=== PATIENT | male | born 1985 | race Caucasian/White ===

== ENCOUNTER 2018-05-08 11:19 | Observation (INO) ==
[2018-05-08] MEDS ORDERED: *HR* Midazolam HCl 5 MG/ML VIAL IVP ONE (11:28)
[2018-05-08] MEDS ORDERED: *HR* Midazolam HCl 2 MG/2 ML VIAL ONE (11:28)
[2018-05-08] MEDS ORDERED: levETIRAcetam 1,000 MG in 0.9 % Sodium Chloride 100 ML IVPB ONE (11:35)
[2018-05-08] MEDS ORDERED: 0.9 % Sodium Chloride 1,000 ML IVC ONE (11:35)
[2018-05-08] MEDS ORDERED: *HR* LORazepam 2 MG/ML VIAL IVP ONE (11:38)
--- NOTE | 2018-05-08 11:42 | Emergency Department Note ---
Disposition Clinical Impression: Epileptic seizure Qualifiers: Epilepsy type: unspecified Intractability: not intractable Status epilepticus: without status epilepticus Qualified Code(s): G40.909 - Epilepsy, unspecified, not intractable, without status epilepticus Disposition: Admitted As Inpatient Condition: Fair Time of Disposition: 13:46 General Adult HPI - General Chief complaint: ED Seizure Stated complaint: seizure Time Seen by Provider: 05/08/18 11:27 Source: patient Mode of arrival: EMS Limitations: no limitations Nursing Notes Reviewed: Yes Vital Signs Reviewed: Yes - History of Present Illness HPI Narrative: Patient is a 33-year-old male with past medical history of seizure disorder presents to the emergency Department by squad for seizure. According to the EMS the patient was at work at [employer] and he fell to the ground due to a seizure. According to coworkers the patient slowly fell to the ground did not hit his head or his neck. They state that his arms and his legs both stiffened and his eyes rolled to the back of his head. States that this lasted for approximately 2 minutes until EMS arrived. According to EMS and route the patient appeared to have an additional episode of seizure-like activity is as they dropped the bursa to administer the patient intranasally the seizure activity stopped. On arrival to the ER the patient does appear to be in a postictal state. He did have an active seizure with duration of about 2 minutes on questioning. The patient's arms flexed and stiffened, his legs extended and stiffened and his eyes rolled to the back of his head. His heart rate also increased his pulse ox began to decrease. Discussed with the patient' s over the phone his Ativan allergy which she states is that he becomes agitated. He was administered 5 mg of Versed at that time. He also be started on a Keppra drip. - Related Data Home Medications Medication Instructions Recorded Confirmed carBAMazepine [Tegretol] 200 mg PO BID 08/20/15 05/08/18 Ibuprofen [Motrin] 800 mg PO BID 05/08/18 05/08/18 Allergies Allergy/AdvReac Type Severity Reaction Status Date / Time Penicillins Allergy Hives Verified 08/06/17 18:11 Sulfa (Sulfonamide Allergy See Verified 09/21/17 19:45 Antibiotics) Comments lorazepam [From Ativan] AdvReac See Verified 05/08/18 11:35 Comments Limitations: ROS unobtainable due to patients medical condition Past Medical History - Past Medical History Source: unable to obtain (AMS) Medical history: Reports: seizures Surgical history: Reports: no surgical history, other Psychiatric history: Reports: no psych history, other - Social History Smoking Status: Current some day smoker Smokeless Tobacco Status: No Alcohol use: Reports: none Drug use: Reports: none Physical Exam CONSTITUTIONAL: Initially upon arrival the patient's neurologic exam was intact , but sluggish due to post-ictal state. Vitals within normal limits. HEAD: Normocephalic; atraumatic. No john sign, raccoon eyes or evidence of CSF drainage EYES: PERRL, EOMI, no scleral icterus EARS: No hemotympanum or TM rupture, no otorrhea NECK: No tracheal deviation, JVD, or hematoma. Palpation of the posterior cervical spine reveals no tenderness NOSE: The nose is normal in appearance without rhinorrhea, epistaxis, or septal hematoma. MOUTH: Normal with intact dentition CHEST: no chest tenderness with palpation RESP: Normal chest excursion with respiration, no paradoxical motion, subcutaneous emphysema. The breath sounds are clear and equal bilaterally CARD: Regular rhythm, without murmurs, rub or gallop ABD: No distention, ecchymosis, abrasions. Non-tender, soft, without rigidity , rebound or guarding PELVIS: No laxity or tenderness with palpation or compression EXT: Good ROM without tenderness, deformity. Pulses 2+ in 4 extremities SKIN: Normal for age and race; warm and dry; no apparent lesions, not pale or diaphoretic NEUROLOGICAL: Patient is alert and oriented times three. Cranial nerves III- XII are intact. Sensory and motor functions are intact. Strength is 5/5 for flexion and extension in all 4 extremities. Patellar DTRS are equal and intact. Finger to nose testing is equal and normal bilaterally. Course Course Narrative: 11:43: Patient began actively seizing. The seizure lasted approximately 1 minute. 5 mg of Versed was drawn and administered via IV. The patient became alert. Appears postictal. He will be started with a Keppra loading dose. Discussed his Ativan allergy with his who states that it mostly causes him to become agitated. Discussed with patient's that plan at this time is to treat him for his recurring seizures. We will perform a workup to evaluate for any injury from his fall he did complain of left shoulder pain the fall was witnessed however patient is unable to state whether he has neck pains we will undergo a head CT and a C-spine of the neck. We will evaluate for any provoking etiology of his seizures with basic labs to rule out infectious cause. His does state that he was having URI-like symptoms over the past couple of days. - Reevaluation(s) Reevaluation #1: Patientor seizure-like activity. His CT scan of his other plain films came back unremarkable for acute intracranial process or fracture. Labwork is also returned unremarkable. I discussed the patient's case with the neurologist machine repair person Dr. Winkler and he agrees to see the patient and consult given that patient does not have follow-up at this time for outpatient neurology. I also discussed the patient's case with Dr. Morales and he agrees to accept the patient to the hospital. Vital Signs Temperature 96.9 F L 05/08/18 11:38 Pulse Rate 68 05/08/18 11:38 Respiratory Rate 18 05/08/18 11:38 Blood Pressure 113/61 05/08/18 11:38 O2 Sat by Pulse Oximetry 100 05/08/18 11:38 Temperature 97.6 F 05/08/18 14:50 Pulse Rate 56 05/08/18 14:50 Respiratory Rate 18 05/08/18 14:50 Blood Pressure 119/73 05/08/18 14:50 O2 Sat by Pulse Oximetry 99 05/08/18 14:50 Oxygen Delivery Oxygen Delivery Nasal Cannula Medical Decision Making - Medical Records Medical records reviewed: Yes I reviewed the patient's medical records. - Lab Data Lab results reviewed: Yes I reviewed the patient's lab results. Result diagrams: 05/08/18 11:43 05/08/18 11:43 Lab Results 05/08/18 05/08/18 05/08/18 Range/Units 11:43 11:43 11:43 WBC 7.5 (4.3-11.1) K/mcL RBC 4.70 (4.19-5.50) M/mcL Hgb 13.3 (12.9-16.9) g/dL Hct 38.9 (37.5-50.1) % MCV 82.8 L (83.0-100.0) fL MCH 28.3 (28.0-33.3) pg MCHC 34.2 (31.6-35.5) g/dL RDW 12.3 (11.5-14.5) % Plt Count 170 (140-400) K/mcL MPV 10.5 (9.4-12.4) fL Immature Gran % 0.3 (0-4) % Seg Neutrophils % 84.6 % Lymphocytes % 10.3 % Monocytes % 3.9 % Eosinophils % 0.4 % Basophils % 0.5 % Neutrophils # 6.4 (1.6-8.9) K/mcL Lymphocytes # 0.8 (0.6-4.6) K/mcL Monocytes # 0.3 (0.0-1.3) K/mcL Eosinophils # 0.0 (0.0-0.6) K/mcL Basophils # 0.0 (0.0-0.2) K/mcL Sodium 141 (136-145) mEq/L Potassium 3.7 (3.5-5.1) mEq/L Chloride 109 H (98-107) mEq/L Carbon Dioxide 26 (23-29) mEq/L BUN 7 (6-20) mg/dL Creatinine 1.00 (0.70-1.30) mg/dL Est GFR ( Amer) > 60 (> 60) Est GFR (Non-Af Amer) > 60 (> 60) BUN/Creatinine Ratio 7 (6-26) Glucose 114 H (70-105) mg/dL Calculated Osmolality 291 (280-300) Lactic Acid (0.5-2.2) mmol/L Calcium 9.2 (8.6-10.3) mg/dL Total Bilirubin 0.4 (0.3-1.0) mg/dL AST 15 (13-39) Units/L ALT 16 (7-52) Units/L Alkaline Phosphatase 84 (34-104) Units/L Creatine Kinase 53 (30-223) Units/L Serum Total Protein 6.9 (6.4-8.9) g/dL Albumin 4.4 (3.5-5.7) g/dL Globulin 2.5 (2.4-3.5) g/dL Albumin/Globulin Ratio 1.8 (1.1-2.2) Prolactin 10.78 (3.00-14.70) ng/mL Salicylates < 2.5 L (15.0-30.0) mg/dL Acetaminophen < 10 L (10-20) mcg/mL Carbamazepine < 1 L (4-12) mcg/mL Ethyl Alcohol < 10 (Less than 10) mg/dL 05/08/18 Range/Units 11:56 WBC (4.3-11.1) K/mcL RBC (4.19-5.50) M/mcL Hgb (12.9-16.9) g/dL Hct (37.5-50.1) % MCV (83.0-100.0) fL MCH (28.0-33.3) pg MCHC (31.6-35.5) g/dL RDW (11.5-14.5) % Plt Count (140-400) K/mcL MPV (9.4-12.4) fL Immature Gran % (0-4) % Seg Neutrophils % % Lymphocytes % % Monocytes % % Eosinophils % % Basophils % % Neutrophils # (1.6-8.9) K/mcL Lymphocytes # (0.6-4.6) K/mcL Monocytes # (0.0-1.3) K/mcL Eosinophils # (0.0-0.6) K/mcL Basophils # (0.0-0.2) K/mcL Sodium (136-145) mEq/L Potassium (3.5-5.1) mEq/L Chloride (98-107) mEq/L Carbon Dioxide (23-29) mEq/L BUN (6-20) mg/dL Creatinine (0.70-1.30) mg/dL Est GFR ( Amer) (> 60) Est GFR (Non-Af Amer) (> 60) BUN/Creatinine Ratio (6-26) Glucose (70-105) mg/dL Calculated Osmolality (280-300) Lactic Acid 1.6 (0.5-2.2) mmol/L Calcium (8.6-10.3) mg/dL Total Bilirubin (0.3-1.0) mg/dL AST (13-39) Units/L ALT (7-52) Units/L Alkaline Phosphatase (34-104) Units/L Creatine Kinase (30-223) Units/L Serum Total Protein (6.4-8.9) g/dL Albumin (3.5-5.7) g/dL Globulin (2.4-3.5) g/dL Albumin/Globulin Ratio (1.1-2.2) Prolactin (3.00-14.70) ng/mL Salicylates (15.0-30.0) mg/dL Acetaminophen (10-20) mcg/mL Carbamazepine (4-12) mcg/mL Ethyl Alcohol (Less than 10) mg/dL - Radiology Data Radiology results reviewed: Yes I reviewed the patient's radiology results. Cervical Spine CT 05/08/18 11:30 IMPRESSION: No acute abnormality of the cervical spine. D/ / Mercy Hollingsworth MD / Mercy Hollingsworth MD Interpreting Provider: Mercy Hollingsworth MD Head CT 05/08/18 11:30 IMPRESSION: No acute intracranial abnormality. Paranasal sinusitis. D/ / Mao Smith MD / Mao Smith MD Interpreting Provider: Mao Smith MD Shoulder X-Ray 05/08/18 11:30 IMPRESSION: 1. No acute osseous abnormality of the left shoulder. 2. No significant degenerative changes. D/ / 05/08/2018 13:03:14 Roya Shankar MD / [facility] Interpreting Provider: Roya Shankar MD Chest X-Ray 05/08/18 11:38 IMPRESSION: No acute cardiopulmonary disease. D/ / 05/08/2018 13:07:40 Roya Shankar MD / [facility] Interpreting Provider: Roya Shankar MD - EKG Data EKG #1 EKG attestation: Yes I reviewed and interpreted this EKG. EKG results narrative: EKG done at 11:40 shows sinus rhythm at a rate of 81 bpm. Normal axis. Intervals within normal limits no signs of ST elevation, ST depression or Q waves present.
--- NOTE | 2018-05-08 12:06 | Emergency Department Note ---
Disposition Clinical Impression: Epileptic seizure Qualifiers: Epilepsy type: unspecified Intractability: not intractable Status epilepticus: without status epilepticus Qualified Code(s): G40.909 - Epilepsy, unspecified, not intractable, without status epilepticus Disposition: Still a Patient Condition: Fair Referrals: Angelique Medina SH[employer]ER [Advanced Practice Nurse] - Forms: ED Satisfaction Letter General Adult HPI - General Chief complaint: ED Seizure Stated complaint: seizure Time Seen by Provider: 05/08/18 11:27 Source: patient Mode of arrival: EMS Limitations: no limitations - History of Present Illness Pain Scale: 4 - Related Data Home Medications Medication Instructions Recorded Confirmed carBAMazepine [Tegretol] 200 mg PO BID 08/20/15 09/15/15 Previous Rx's Medication Instructions Recorded Azithromycin [Zithromax Tri-Harman] 500 mg PO ONCE #2 tablet 01/19/17 Cephalexin [Keflex] 500 mg PO TID 3 Days capsule 08/06/17 Allergies Allergy/AdvReac Type Severity Reaction Status Date / Time Penicillins Allergy Hives Verified 08/06/17 18:11 Sulfa (Sulfonamide Allergy See Verified 09/21/17 19:45 Antibiotics) Comments lorazepam [From Ativan] AdvReac See Verified 05/08/18 11:35 Comments Past Medical History - Past Medical History Medical history: Reports: seizures Surgical history: Reports: no surgical history, other Psychiatric history: Reports: no psych history, other - Social History Smoking Status: Current some day smoker Smokeless Tobacco Status: No Alcohol use: Reports: none Drug use: Reports: none Physical Exam - General Limitations: no limitations General appearance: alert, in no apparent distress Course Vital Signs Temperature 96.9 F L 05/08/18 11:38 Pulse Rate 68 05/08/18 11:38 Respiratory Rate 05/08/18 11:38 Blood Pressure 113/61 05/08/18 11:38 O2 Sat by Pulse Oximetry 100 05/08/18 11:38 Temperature 96.9 F L 05/08/18 11:38 Pulse Rate 68 05/08/18 11:38 Respiratory Rate 18 05/08/18 11:38 Blood Pressure 113/61 05/08/18 11:38 O2 Sat by Pulse Oximetry 100 05/08/18 11:43 Oxygen Delivery Oxygen Delivery Nasal Cannula Attestation Statement - Attestation Attestation: I examined this patient and my medical decision-making was reviewed with the Resident Physician. I agree with the documented findings, disposition and treatment plan as described except to the extent set forth below. 33 year old male with history of epilepsey and is currently on tegertol and follows with [facility] neurolgoy experiecned a seizure while at work unwitnessed. Zeny states that he has been feeling ill thsi morning and had mild headache and sinus problems that he has been trying to recover from in the past few days. He was reently evaluted in the ED for his seizure last month and appeared to be dehydrated at that time. Zeny was found on the floor by his boss seizing and then had two more seizures in the squad and two wtinessed seizures t bedside all lastnight no more than 60 seconds each. He states that he did tae his tegretol at home this morning. There was concern that he was allergic to ativan and thus we gave hi versed therapy and a loading dose of keprra at bedside. After discussing wiht his , this is not a true allergy but rather an adverse reacion because he becomes agitated on ativan. I have discseed with minerva and his that if he experiences another seizure we will be treating him with ativan and he and his are agreeable to plan. he does not have an anaphylatic reaction to ativan, we have cahnged this in his recods. We will do neuro workup, placed him in a C-collar and doa focused trauma eval and then consult with neuro. WE johann andrew admit here or transfer to [facility]
[2018-05-08 12:10] LABS: Basophils % 0.5 %; Eosinophils % 0.4 %; Hematocrit 38.9 % (37.5-50.1); Hemoglobin 13.3 g/dL (12.9-16.9); Immature Granulocytes % 0.3 % (0-4); Lymphocytes # 0.8 K/mcL (0.6-4.6); Lymphocytes % 10.3 %; Mean Corpuscular HGB Conc 34.2 g/dL (31.6-35.5); Mean Corpuscular Hemoglobin 28.3 pg (28.0-33.3); Mean Corpuscular Volume 82.8 fL (83.0-100.0); Mean Platelet Volume 10.5 fL (9.4-12.4); Monocytes # 0.3 K/mcL (0.0-1.3); Monocytes % 3.9 %; Neutrophils # 6.4 K/mcL (1.6-8.9); Platelet Count 170 K/mcL (140-400); Red Cell Distribution Width 12.3 % (11.5-14.5); Segmented Neutrophils % 84.6 %
[2018-05-08 12:36] LABS: Acetaminophen < 10 mcg/mL (10-20); Alanine Aminotransferase 16 Units/L (7-52); Albumin 4.4 g/dL (3.5-5.7); Albumin/Globulin Ratio 1.8 (1.1-2.2); Alkaline Phosphatase 84 Units/L (34-104); Aspartate Amino Transferase 15 Units/L (13-39); BUN/Creatinine Ratio 7 (6-26); Bilirubin,Total 0.4 mg/dL (0.3-1.0); Blood Urea Nitrogen 7 mg/dL (6-20); Calcium 9.2 mg/dL (8.6-10.3); Carbon Dioxide 26 mEq/L (23-29); Chloride 109 mEq/L (98-107); Creatine Kinase 53 Units/L (30-223); Ethanol < 10 mg/dL (Less than 10); Globulin 2.5 g/dL (2.4-3.5); Glucose 114 mg/dL (70-105); Osmolality,Calculated 291 (280-300); Potassium 3.7 mEq/L (3.5-5.1); Salicylate < 2.5 mg/dL (15.0-30.0); Sodium 141 mEq/L (136-145); Total Protein 6.9 g/dL (6.4-8.9); eGFR For Non-African Americans > 60 (> 60)
[2018-05-08 13:00] LABS: Prolactin 10.78 ng/mL (3.00-14.70)
[2018-05-08] MEDS ORDERED: Naloxone 0.4 MG/ML INJ IVP PRN (14:58)
--- NOTE | 2018-05-08 15:19 | Internal Med History&Physical ---
<Violeta Wills - Last Filed: 05/08/18 15:11> Date of Encounter: 05/08/18 Time of Encounter: 15:11 Internal Medicine - H&P: HPI Chief complaint: Seizure at work Admitted From: Home (Work) Plans for Post Hospital Care: Home History of present illness: Mr. Cortez is a 33 year old male with history of epilepsy. The patient indicated that he started his day with a headache at the base of his neck. The patient went to work, and was found on the floor seizing. He was brought to the ED, by squad. The patient had a full work up in the ED and was noted to have a negative CT of head. He was evaluated for fractures of the left shoulder and the cervical spine, which was negative. The patient admitted that he occasionally forgets to take his tegretol and frequently forgets his bedtime dose. 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 I will add a pharmacy consult to help the patient try to manage dosing at night. He still reports a AVINA. Will add tylenol prn. Past Med Surg Social Fam HX - Past Medical History Medical history: seizures Additional medical history: unable to verify Psychiatric history: no psych history, other - Past Surgical History Surgical History: no surgical history, other Additional surgical history: Abdominal surgery. hernia repair - Social History Smoking Status: Current some day smoker Smokeless Tobacco Status: No Alcohol use: none Drug use: none Internal Medicine - H&P: Meds carBAMazepine [Tegretol] 200 mg PO BID 08/20/15 [History] Ibuprofen [Motrin] 800 mg PO BID 05/08/18 [History] 3 Allergy/AdvReac Type Severity Reaction Status Date / Time Penicillins Allergy Hives Verified 08/06/17 18:11 Sulfa (Sulfonamide Allergy See Verified 09/21/17 19:45 Antibiotics) Comments lorazepam [From Ativan] AdvReac See Verified 05/08/18 11:35 Comments All Systems PM: A 10-system review of systems was performed and is negative for pertinent findings except as documented above in the HPI. - Constitutional Constitutional: no chills, no fever(s), no night sweats - EENT Eyes: no change in vision, no discharge, no pain, no photophobia Ears: no ear discharge, no ear pain, no tinnitus Nose, mouth and throat: no dysphagia, no nasal discharge, no neck pain, no sore throat - Cardiovascular Cardiovascular ROS IM: no chest pain, no diaphoresis, no dyspnea, no lightheadedness, no palpitations, no syncope - Respiratory Respiratory: no cough, no dyspnea, no wheezing, no excessive phlegm production - Gastrointestinal Gastrointestinal: no abdominal pain, no diarrhea, no hematemesis, no hematochezia, no melena, no nausea, no vomiting - Musculoskeletal Musculoskeletal ROS IM: no numbness, no tingling - Integumentary Integumentary IM: no rash, no unusual bruising - Neurological Neurological ROS: no confusion, no convulsions, no focal weakness, no numbness, no tingling, no tremor(s) - Hematologic/Lymphatic Hematologic/Lymphatic: no easy bruising - Constitutional Vitals: Temp Pulse Resp BP Pulse Ox 97.6 F 56 18 119/73 99 05/08/18 14:50 05/08/18 14:50 05/08/18 14:50 05/08/18 14:50 05/08/18 14:50 - Head Head exam: Present: atraumatic, normocephalic - Eye Eye exam: Present: PERRL, conjuntiva pink, sclera anicteric Pupils: Present: PERRL - Neck Neck exam general surgery: Present: supple, trachea midline. Absent: lymphadenopathy - Respiratory Respiratory exam: Present: CTAB. Absent: accessory muscle use, rales, rhonchi, wheezes - Cardiovascular Cardiovascular exam: Present: RRR, +S1, +S2. Absent: diastolic murmur, gallop, rubs, systolic murmur - GI/Abdominal GI/Abdominal exam: Present: normal bowel sounds, soft, no peritoneal signs. Absent: distended, tenderness - Extremities Exam Extremities exam: Present: warm, radial pulses palpable and symmetrical. Absent : calf tenderness, cyanotic, pedal edema - Neurological Exam Neurological exam: Present: CN II-XII intact, oriented X3, no focal deficits. Absent: pronater drift, facial droop, speech deficit - Skin Skin exam: Present: dry, intact Internal Med - H&P Results - Labs CBC & Chem 7: 05/08/18 11:43 05/08/18 11:43 - Assessment and plan (1) Epileptic seizure Current Visit: Yes Status: Acute Assessment and plan: Patient was given iv Keppra in the ED. Resume patient's home dosing of Tegretol Seizure precautions Qualifiers: Epilepsy type: unspecified Intractability: not intractable Status epilepticus: without status epilepticus Qualified Code(s): G40.909 - Epilepsy , unspecified, not intractable, without status epilepticus (2) Nonadherence to medication Current Visit: Yes Status: Acute Assessment and plan: Pharmacy consultation regarding medication compliance and education. (3) Head ache Current Visit: Yes Status: Acute Assessment and plan: Patient reports AVINA when he has seizures. He indicated that he had one this morning before he went to work. Acetaminophen [address] of head was negative for acute abnormality Qualifiers: Intractability: not intractable Qualified Code(s): R51 - Headache - Time Spent With Patient Total time spent is greater than 50% in coordination of care (as documented) at patient's floor/unit and/or counseling patient: <Willie Morales - Last Filed: 05/08/18 20:48> Date of Encounter: 05/08/18 Internal Medicine - H&P: HPI History of present illness: Mr. Cortez is a 33 year old male All Systems PM: A 10-system review of systems was performed and is negative for pertinent findings except as documented above in the HPI. - Constitutional Vitals: Temp Pulse Resp BP Pulse Ox 98.0 F 60 16 99/64 99 05/08/18 20:21 05/08/18 20:21 05/08/18 20:21 05/08/18 20:21 05/08/18 20:21 Internal Med - H&P Results - Labs CBC & Chem 7: 05/08/18 11:43 05/08/18 11:43 - Attending Attestation I have evaluated and formulated management plan of the patient with Violeta Wills and I agree with her assessment and plan. 33 year old male with known seizure d/ o on carbamazepine presented to the ED with breakthrough seizure. Tegretol level subtherapeutic due to non-compliance. Non-focal exam, CT head unremarkable. Monitor overnight and discharge home tomorrow if seizure free. Neuro consult placed in the ED. - Time Spent With Patient Total time spent is greater than 50% in coordination of care (as documented) at patient's floor/unit and/or counseling patient:
--- NOTE | 2018-05-08 17:44 | Neurology - Consult Note ---
Date of Encounter: 05/08/18 Time of Encounter: 17:40 Assessment and Plan (1) Epileptic seizure Current Visit: Yes Status: Acute Patient with known seizure disorder who developed recurrent seizures likely related to non-compliance. No significant provoking factors noted and patient is not having ongoing medical conditions and his tegretol level is < 1. Will recommend to start him on Tegretol 400mg bid and follow up in neurology 2- 3 weeks after discharge to check level. He is having no medical insurance now and likely will not afford medicine that is more expensive. He is neurologically stable. He is ready to be discharged from neurology perspective. Qualifiers: Epilepsy type: unspecified Intractability: not intractable Status epilepticus: without status epilepticus Qualified Code(s): G40.909 - Epilepsy , unspecified, not intractable, without status epilepticus History of Present Illness Chief complaint: Recurrent seizures HPI: Mr. Cortez is a 33 year old male with known seizure disorder who presented with seizure like activity. He is interviewed in the presence of his . He has two small kids now. He has known seizure disorder and been taking Tegretol 200mg bid and reportedly he has been doing well and not had any seizures for about two years. However, recently about two months ago he had a seizure. Then today he was found to have a seizure at work and it was described as eyes rolling back, slowly falling to the ground and lost his consciousness. Seizure lasted few minutes in duration and en route to ER he was found to by EMS that he has another 1 or two seizures and in the ER he was slightly postictal. CT of head showed no acute intracranial abnormality. Tegretol level < 1. Electrolyte and CBC were unremarkable. Toxicology negative. No fever. Currently patient is wide awake and eating. Past Med Surg Social Fam HX - Past Medical History Medical history: seizures Additional medical history: unable to verify Psychiatric history: no psych history, other - Past Surgical History Surgical History: no surgical history, other Additional surgical history: Abdominal surgery. hernia repair - Social History Smoking Status: Current some day smoker Smokeless Tobacco Status: No Alcohol use: none Drug use: none Medications and Allergies carBAMazepine [Tegretol] 200 mg PO BID 08/20/15 [History] Ibuprofen [Motrin] 800 mg PO BID 05/08/18 [History] 3 Allergy/AdvReac Type Severity Reaction Status Date / Time Penicillins Allergy Hives Verified 08/06/17 18:11 Sulfa (Sulfonamide Allergy See Verified 09/21/17 19:45 Antibiotics) Comments lorazepam [From Ativan] AdvReac See Verified 05/08/18 11:35 Comments All Systems: The remainder of the systems were reviewed and are negative Physical Examination - Vital Signs Vital Signs: Initial Vital Signs Temp Pulse Resp BP Pulse Ox 96.9 F L 68 18 113/61 100 05/08/18 11:38 05/08/18 11:38 05/08/18 11:38 05/08/18 11:38 05/08/18 11:38 - Constitutional General appearance: comfortable - Neurologic Detailed motor examination: full strength in all major muscle groups Motor examination - right side: 5/5: deltoids, biceps, triceps, wrist flexion, wrist extension, slot manager, hip flexors, tibialis Anterior, quadriceps, toe extension (EHL), plantarflexion Motor examination - left side: 5/5: deltoids, biceps, triceps, wrist flexion, wrist extension, hip flexors, slot manager, quadriceps, tibialis Anterior, toe extension (EHL), plantarflexion Detailed sensory examination: intact Posture: other (None) Reflex and gait examination: intact Reflexes: Biceps: 1+, Triceps: 1+, Brachioradialis: 1+, Patella: 1+, Achilles: 1 + Mental Status Examination: awake, alert, oriented to person, oriented to place, oriented to time, follows commands appropriately, answers questions appropriately, no agnosia, no aphasia, no aproxia Cranial nerve examination: PERRL, EOMI, visual cabrera intact, corneal reflexes brisk symmetrically, sensory to face intact, mastication intact, no facial asymmetry is present, no dysarthria, hearing is intact symmetrically, soft palate elevates bilaterally upon phonation, gag reflex intact, flexes SCM and trapezius muscles symmetrically with full power, tongue protrudes midline, no atrophy or facial fasiculations present Cerebellar examination: no dysmetria, performs finger to nose and heel to blankenship symmetrically without ataxia, no gait ataxia, no truncal ataxia, no difficulty with rapid alternating movements Results - Laboratory Findings CBC and BMP: 05/08/18 11:43 05/08/18 11:43 Abnormal lab findings: Abnormal lab results MCV 82.8 fL (83.0-100.0) L 05/08/18 11:43 Chloride 109 mEq/L (98-107) H 05/08/18 11:43 Glucose 114 mg/dL (70-105) H 05/08/18 11:43 Salicylates < 2.5 mg/dL (15.0-30.0) L 05/08/18 11:43 Acetaminophen < 10 mcg/mL (10-20) L 05/08/18 11:43 Carbamazepine < 1 mcg/mL (4-12) L 05/08/18 11:43 Consult Discharge Plan - Plan Referrals: NONE,PCP [Primary Care Provider] -
[2018-05-08] MEDS: Ibuprofen 400 MG TABLET PO SCH (17:58)
--- NOTE | 2018-05-08 18:30 | Electrocardiograph Report ---
[place] [id number] Test Date: 2018-05-08 Pat Name: Dawit Cortez Department: 104 Room: 3B46 Gender: M Medical Case Manager: TMR : 1985 Requested By: Rajesh Momin Order Number: [id number] Reading MD: Reynaldo Greer Measurements Intervals [place] Rate: 81 P: 53 MI: 168 QRS: 76 QRSD: 90 T: 53 QT: 374 QTc: 411 Interpretive Statements SINUS RHYTHM Electronically Signed On 05-08-2018 18:29:15 EDT by Reynaldo Greer
[2018-05-08] MEDS: Acetaminophen 325 MG TABLET PO PRN (20:54)
[2018-05-08] MEDS: carBAMazepine 200 MG TABLET PO SCH (20:54)
[2018-05-09] MEDS: Acetaminophen 325 MG TABLET PO PRN (04:36)
[2018-05-09 06:28] LABS: Basophils # 0.1 K/mcL (0.0-0.2); Basophils % 0.9 %; Eosinophils # 0.2 K/mcL (0.0-0.6); Hematocrit 38.3 % (37.5-50.1); Hemoglobin 12.9 g/dL (12.9-16.9); Immature Granulocytes % 0.2 % (0-4); Lymphocytes # 1.9 K/mcL (0.6-4.6); Lymphocytes % 34.6 %; Mean Corpuscular HGB Conc 33.7 g/dL (31.6-35.5); Mean Corpuscular Hemoglobin 28.2 pg (28.0-33.3); Mean Corpuscular Volume 83.8 fL (83.0-100.0); Mean Platelet Volume 11.2 fL (9.4-12.4); Monocytes # 0.5 K/mcL (0.0-1.3); Monocytes % 8.2 %; Neutrophils # 2.8 K/mcL (1.6-8.9); Platelet Count 185 K/mcL (140-400); Red Blood Count 4.57 M/mcL (4.19-5.50); Red Cell Distribution Width 12.4 % (11.5-14.5); Segmented Neutrophils % 52.1 %
[2018-05-09 06:46] LABS: Troponin I < 0.03 ng/mL (< 0.04)
[2018-05-09 06:48] LABS: BUN/Creatinine Ratio 8 (6-26); Blood Urea Nitrogen 8 mg/dL (6-20); Carbon Dioxide 27 mEq/L (23-29); Chloride 110 mEq/L (98-107); Glucose 109 mg/dL (70-105); Osmolality,Calculated 293 (280-300); Potassium 3.4 mEq/L (3.5-5.1); Sodium 142 mEq/L (136-145); eGFR For Non-African Americans > 60 (> 60)
[2018-05-09] MEDS: Ibuprofen 400 MG TABLET PO SCH (09:34)
[2018-05-09] MEDS: carBAMazepine 200 MG TABLET PO SCH (09:35)
--- NOTE | 2018-05-09 10:11 | Neurology Progress Note ---
Date of Encounter: 05/09/18 Time of Encounter: 10:09 Assessment and Plan (1) Epileptic seizure Current Visit: Yes Status: Acute Patient with known seizure disorder who developed recurrent seizures likely related to non-compliance. No significant provoking factors noted and patient is not having ongoing medical conditions and his tegretol level is < 1. Will recommend to start him on Tegretol 400mg bid. He sees neurologist at [facility] and he is recommended to follow up with primary neurologist within one or two weeks. Will sign off at this time please call if any questions Qualifiers: Epilepsy type: unspecified Intractability: not intractable Status epilepticus: without status epilepticus Qualified Code(s): G40.909 - Epilepsy , unspecified, not intractable, without status epilepticus Subjective Principal diagnosis: SEizure disorder Interval history: Patient seen and examined. He feels fine no recurrent seizures over night He is on Tegretol 200mg bid He sees neurologist at [facility] in [place]. Objective - Constitutional Vitals: Temp Pulse Resp BP Pulse Ox 98.0 F 66 17 100/61 98 05/09/18 07:19 05/09/18 07:19 05/09/18 07:19 05/09/18 07:19 05/09/18 07:19 - Neurological Exam Sensorimotor examination: Present: intact Motor Examination: Present: full strength in all major muscle groups Motor examination - right side: 5/5: deltoids, biceps, triceps, wrist flexion, wrist extension, improvement nurse, hip flexors, tibialis Anterior, quadriceps, toe extension (EHL), plantarflexion Motor examination - left side: 5/5: deltoids, biceps, triceps, wrist flexion, wrist extension, hip flexors, improvement nurse, quadriceps, tibialis Anterior, toe extension (EHL), plantarflexion Sensation intact: Present: intact Posture: Present: other (None) Reflex and gait examination: intact Mental Status Examination: Present: awake, alert, oriented to person, oriented to place, oriented to time, follows commands appropriately, answers questions appropriately, no agnosia, no aphasia, no aproxia Cranial nerve examination: Present: PERRL, EOMI, visual cabrera intact, corneal reflexes brisk symmetrically, sensory to face intact, mastication intact, no facial asymmetry is present, no dysarthria, hearing is intact symmetrically, soft palate elevates bilaterally upon phonation, gag reflex intact, flexes SCM and trapezius muscles symmetrically with full power, tongue protrudes midline, no atrophy or facial fasiculations present Cerebellar examination: Present: no dysmetria, performs finger to nose and heel to blankenship symmetrically without ataxia, no gait ataxia, no truncal ataxia, no difficulty with rapid alternating movements Results - Laboratory Findings CBC and BMP: 05/09/18 05:32 05/09/18 05:32 Abnormal lab findings: Abnormal lab results Potassium 3.4 mEq/L (3.5-5.1) L 05/09/18 05:32 Chloride 110 mEq/L (98-107) H 05/09/18 05:32 Glucose 109 mg/dL (70-105) H 05/09/18 05:32 Salicylates < 2.5 mg/dL (15.0-30.0) L 05/08/18 11:43 Acetaminophen < 10 mcg/mL (10-20) L 05/08/18 11:43 Carbamazepine < 1 mcg/mL (4-12) L 05/08/18 11:43 Consult Discharge Plan - Plan Referrals: NONE,PCP [Primary Care Provider] -
[2018-05-09 10:55] VITALS: BP 123/72
[2018-05-09] MEDS ORDERED: carBAMazepine 200 MG TABLET PO SCH (11:45)
--- NOTE | 2018-05-09 12:08 | Discharge Summary ---
- NOTES TO OUTPATIENT PROVIDER Notes to Outpatient Provider: f/u with neurology within a week. f/u with PCP within 1-2 week. Date of Encounter: 05/09/18 Time of Encounter: 12:06 - Discharge Diagnosis (1) Epileptic seizure Priority: Primary Status: Acute Qualifiers: Epilepsy type: unspecified Intractability: not intractable Status epilepticus: without status epilepticus Qualified Code(s): G40.909 - Epilepsy , unspecified, not intractable, without status epilepticus (2) Nonadherence to medication Priority: Primary Status: Acute Hospital course: Mr. Cortez is a 33 year old male with history of epilepsy. The patient indicated that he started his day with a headache at the base of his neck. The patient went to work, and was found on the floor seizing. He was brought to the ED by squad. The patient had a full work up in the ED and was noted to have a negative CT of head. He was evaluated for fractures of the left shoulder and the cervical spine, which was negative. The patient admitted that he occasionally forgets to take his tegretol and frequently forgets his bedtime dose. 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 Tegretol level was less than 1. Neurology was consulted. Patient was restarted on home dose of Tegretol. He had no further seizures since admission. Patient will be discharged home today. He will follow up with neurology at [facility]. He will also follow-up with PCP within 1-2 weeks. Discharge discussed with: patient Time spent discussing smoking cessation with patient: more than 10 minutes - Time Spent with Patient Total time spent providing and/or coordinating discharge services: Greater than 30 minutes - Discharge Medications Prescriptions: carBAMazepine [Tegretol] 400 mg PO BID #60 tablet Home Medications: Ibuprofen [Motrin] 800 mg PO BID 05/08/18 [History] carBAMazepine [Tegretol] 400 mg PO BID #60 tablet 05/09/18 [Rx] Allergies/Adverse Reactions: 3 Allergy/AdvReac Type Severity Reaction Status Date / Time Penicillins Allergy Hives Verified 08/06/17 18:11 Sulfa (Sulfonamide Allergy See Verified 09/21/17 19:45 Antibiotics) Comments lorazepam [From Ativan] AdvReac See Verified 05/08/18 11:35 Comments Date of admission: 05/08/18 13:52 Primary care physician: PCP NONE Consults: 05/08/18 15:23 Consult for Pharmacy Education [CONS] Routine Reason for Consult: Patient non-compliant with tegretol dosing due to work schedule. Needs education Time Notified: 15:24 Call Completed: Yes Anticipated date of discharge: 05/09/18 - Constitutional Vitals: Temp Pulse Resp BP Pulse Ox 97.8 F 73 16 123/72 97 05/09/18 10:54 05/09/18 10:54 05/09/18 10:54 05/09/18 10:54 05/09/18 10:54 General appearance: Present: A&O X 3 Exam: PHYSICAL EXAMINATION: GENERAL APPEARANCE: The patient is alert, oriented and in no acute distress. HEENT: Head is normocephalic. The sinuses are nontender. Pupils are equal and reactive. The nares are patent. Oropharynx clear without lesions. NECK: Supple without lymphadenopathy. HEART: Regular rate and rhythm. LUNGS: No crackles or wheezes are heard. ABDOMEN: Soft, nontender, nondistended with good bowel sounds heard. Inguinal area is normal. EXTREMITIES: Without cyanosis, clubbing or edema. NEUROLOGICAL: Gross nonfocal. SKIN: Warm and dry without any rash. - Patient Status Disposition: Home, Self-Care Condition: Fair Functional capacity at discharge: independent ambulation Overall status at discharge: patient is back to baseline - Discharge Instructions Instructions: Carbamazepine (By mouth), Epilepsy (DC) Follow Up With: NONE,PCP [Primary Care Provider] - Forms: Work/School Release - Diet and Activity Activity: increase activity as tolerated Diet: advance to your usual diet
== END 2018-05-09 13:11 | disposition home or self-care (01) ==
LOC: 3BNU 11:19 → EMEROO 11:19 → 3BNU 14:23
PROVIDERS: ADMIT Internal Medicine; ATTEND Internal Medicine

== ENCOUNTER 2020-03-02 00:25 | Inpatient (IN) ==
[2020-03-02 01:39] LABS: Bilirubin,Urine Negative (Negative); Blood,Urine Negative (Negative); Clarity,Urine Clear (Clear); Color,Urine Yellow (Yellow); Glucose,Urine (UA) Normal (Normal); Ketones,Urine Negative (Negative); Leukocyte Esterase,Urine Negative (Negative); Nitrite,Urine Negative (Negative); PH,Urine 6.5 pH Units (5.0-8.0); Protein,Urine Negative (Neg-Trace); Specific Gravity,Urine 1.019 (1.010-1.025); Urobilinogen,Urine Normal (Normal)
[2020-03-02 01:47] LABS: Amphetamine Screen,Urine Negative ng/mL (Cutoff=1000); Barbiturate Screen,Urine Negative ng/mL (Cutoff=200); Benzodiazepines Screen,Urine Positive ng/mL (Cutoff=200); Cannabinoid Screen,Urine Negative ng/mL (Cutoff = 50); Cocaine Screen,Urine Negative ng/mL (Cutoff= 300); Opiate Screen,Urine Negative ng/mL (Cutoff=300); Phencyclidine Screen,Urine Negative ng/mL (Cutoff=25)
[2020-03-02 03:08] LABS: Basophils % 0.4 %; Eosinophils # 0.1 K/mcL (0.0-0.6); Eosinophils % 0.7 %; Hematocrit 42.1 % (37.5-50.1); Hemoglobin 13.9 g/dL (12.9-16.9); Immature Granulocytes % 0.3 % (0-4); Lymphocytes # 1.1 K/mcL (0.6-4.6); Lymphocytes % 11.6 %; Mean Corpuscular Volume 87.7 fL (83.0-100.0); Mean Platelet Volume 11.4 fL (9.4-12.4); Monocytes # 0.4 K/mcL (0.0-1.3); Monocytes % 4.4 %; Neutrophils # 7.6 K/mcL (1.6-8.9); Platelet Count 201 K/mcL (140-400); Red Cell Distribution Width 12.2 % (11.5-14.5); Segmented Neutrophils % 82.6 %; White Blood Count 9.2 K/mcL (4.3-11.1)
[2020-03-02 03:45] LABS: Acetaminophen < 10 mcg/mL (10-20); Alanine Aminotransferase 10 Units/L (7-52); Albumin 4.8 g/dL (3.5-5.7); Albumin/Globulin Ratio 1.9 (1.1-2.2); Alkaline Phosphatase 69 Units/L (34-104); Aspartate Amino Transferase 15 Units/L (13-39); BUN/Creatinine Ratio 11 (6-26); Bilirubin,Total 0.4 mg/dL (0.3-1.0); Blood Urea Nitrogen 11 mg/dL (6-20); Calcium 9.3 mg/dL (8.6-10.3); Carbamazepine (Tegretol) 16 mcg/mL (4-12); Carbon Dioxide 25 mEq/L (23-29); Chloride 110 mEq/L (98-107); Globulin 2.5 g/dL (2.4-3.5); Glucose 88 mg/dL (70-105); Osmolality,Calculated 295 (280-300); Potassium 3.4 mEq/L (3.5-5.1); Salicylate < 2.5 mg/dL (15.0-30.0); Sodium 143 mEq/L (136-145); Total Protein 7.3 g/dL (6.4-8.9); eGFR For African Americans > 60 (> 60); eGFR For Non-African Americans > 60 (> 60)
[2020-03-02] MEDS ORDERED: Acetaminophen 325 MG TABLET PO PRN (07:51)
[2020-03-02] MEDS ORDERED: Naloxone 0.4 MG/ML INJ IVP PRN (07:51)
[2020-03-02] MEDS ORDERED: Ondansetron 4 MG/2 ML VIAL IVP PRN (08:40)
[2020-03-02] MEDS: 0.9 % Sodium Chloride 1,000 ML IVC SCH ×2 (09:27→19:37)
[2020-03-03 02:26] VITALS: BP 117/70
[2020-03-03 05:25] LABS: Hematocrit 39.1 % (37.5-50.1); Hemoglobin 13.2 g/dL (12.9-16.9); Mean Corpuscular HGB Conc 33.8 g/dL (31.6-35.5); Mean Corpuscular Hemoglobin 29.3 pg (28.0-33.3); Mean Corpuscular Volume 86.7 fL (83.0-100.0); Mean Platelet Volume 11.4 fL (9.4-12.4); Platelet Count 154 K/mcL (140-400); Red Blood Count 4.51 M/mcL (4.19-5.50); Red Cell Distribution Width 11.9 % (11.5-14.5); White Blood Count 6.5 K/mcL (4.3-11.1)
[2020-03-03 05:45] LABS: BUN/Creatinine Ratio 11 (6-26); Blood Urea Nitrogen 11 mg/dL (6-20); Calcium 8.2 mg/dL (8.6-10.3); Carbon Dioxide 23 mEq/L (23-29); Chloride 112 mEq/L (98-107); Glucose 90 mg/dL (70-105); Magnesium 2.1 mg/dL (1.6-2.6); Osmolality,Calculated 289 (280-300); Sodium 140 mEq/L (136-145); eGFR For African Americans > 60 (> 60); eGFR For Non-African Americans > 60 (> 60)
== END 2020-03-03 16:58 | DRG 817 ==
LOC: EMEROOARM 00:25 → 3BNU 00:25 → SUATTDRO 05:14 → 3BNU 05:40
PROVIDERS: ADMIT Internal Medicine; ATTEND Internal Medicine

== ENCOUNTER 2020-12-24 13:44 | Observation (INO) ==
[2020-12-24] MEDS ORDERED: 0.9 % Sodium Chloride 1,000 ML IVC ONE (14:17)
[2020-12-24] MEDS ORDERED: levETIRAcetam 1,000 MG in 0.9 % Sodium Chloride 100 ML IVPB ONE ×2 (14:19→17:03)
[2020-12-24] MEDS ORDERED: Isovue-370 500 ML BOTTLE IVP ONE ×2 (14:20→18:19)
[2020-12-24 15:16] LABS: Hemoglobin 15.9 g/dL (12.9-16.9); Mean Corpuscular HGB Conc 33.8 g/dL (31.6-35.5); Mean Corpuscular Hemoglobin 28.3 pg (28.0-33.3); Mean Corpuscular Volume 83.8 fL (83.0-100.0); Mean Platelet Volume 11.1 fL (9.4-12.4); Platelet Count 216 K/mcL (140-400); Red Blood Count 5.61 M/mcL (4.19-5.50); Red Cell Distribution Width 12.3 % (11.5-14.5); White Blood Count 17.5 K/mcL (4.3-11.1)
[2020-12-24 15:36] LABS: Alanine Aminotransferase 12 Units/L (7-52); Albumin 5.3 g/dL (3.5-5.7); Albumin/Globulin Ratio 1.8 (1.1-2.2); Alkaline Phosphatase 89 Units/L (34-104); Aspartate Amino Transferase 19 Units/L (13-39); BUN/Creatinine Ratio 19 (6-26); Bilirubin,Total 0.5 mg/dL (0.3-1.0); Blood Urea Nitrogen 18 mg/dL (6-20); Calcium 10.1 mg/dL (8.6-10.3); Carbon Dioxide 20 mEq/L (23-29); Chloride 106 mEq/L (98-107); Glucose 131 mg/dL (70-105); Osmolality,Calculated 294 (280-300); Potassium 4.1 mEq/L (3.5-5.1); Sodium 140 mEq/L (136-145); Total Protein 8.3 g/dL (6.4-8.9); Troponin I 0.04 ng/mL (< 0.04); eGFR For African Americans > 60 (> 60); eGFR For Non-African Americans > 60 (> 60)
[2020-12-24 15:44] LABS: Basophils # 0.4 K/mcL (0.0-0.2); Lymphocytes # 0.7 K/mcL (0.6-4.6); Monocytes # 0.7 K/mcL (0.0-1.3); Neutrophils # 15.8 K/mcL (1.6-8.9); Platelet Estimate Normal (Normal)
[2020-12-24 15:58] LABS: Carbamazepine (Tegretol) < 1 mcg/mL (4-12)
[2020-12-24] MEDS ORDERED: Ondansetron 4 MG/2 ML VIAL IVP PRN (19:57)
[2020-12-24] MEDS ORDERED: Naloxone 0.4 MG/ML INJ IVP PRN (19:57)
[2020-12-24] MEDS ORDERED: Melatonin 3 MG TABLET PO PRN (19:57)
[2020-12-25 07:48] LABS: Hematocrit 39.5 % (37.5-50.1); Mean Corpuscular HGB Conc 32.9 g/dL (31.6-35.5); Mean Corpuscular Volume 84.9 fL (83.0-100.0); Mean Platelet Volume 10.8 fL (9.4-12.4); Platelet Count 174 K/mcL (140-400); Red Blood Count 4.65 M/mcL (4.19-5.50); Red Cell Distribution Width 12.6 % (11.5-14.5)
[2020-12-25 07:59] LABS: White Blood Count 8.7 K/mcL (4.3-11.1)
[2020-12-25 08:10] LABS: BUN/Creatinine Ratio 15 (6-26); Blood Urea Nitrogen 14 mg/dL (6-20); Calcium 8.7 mg/dL (8.6-10.3); Carbon Dioxide 28 mEq/L (23-29); Chloride 109 mEq/L (98-107); Glucose 95 mg/dL (70-105); Osmolality,Calculated 294 (280-300); Potassium 3.7 mEq/L (3.5-5.1); Sodium 142 mEq/L (136-145); eGFR For African Americans > 60 (> 60); eGFR For Non-African Americans > 60 (> 60)
[2020-12-25 14:36] VITALS: BP 121/69
== END 2020-12-25 19:00 | disposition home or self-care (01) ==
LOC: 3BNU 13:44 → EMEROOARM 13:44 → SUATTDRO 20:21 → 3BNU 20:50
PROVIDERS: ADMIT Internal Medicine; ATTEND Nurse Practitioner